=== PATIENT | male | born 1970 | race Caucasian/White ===

== ENCOUNTER 2017-04-27 16:19 | Inpatient (IN) | payer MEDICAID ==
[~2017-04-27] VITALS: Ht 182.9 cm; Wt 110.5 kg
[2017-04-27 17:03] LABS: Basophils # (auto) 0 uL; Basophils % (auto) 0.2 % (0.0-2.0); CONDITION Y; DEFINITIVE SEE PRINTOUT; Eosinophils # (auto) 0.1 uL; Eosinophils % (auto) 0.8 % (0.0-7.0); Hemoglobin 19.5 g/dL (13.5-17.5); Lymphocytes # (auto) 1.7 uL; Lymphocytes % (auto) 12.9 % (10.0-50.0); Mean Corpuscular Hemoglobin 29.5 pg (28.0-32.0); Mean Corpuscular Hgb Conc. 33.5 g/dL (32.0-36.0); Mean Corpuscular Volume 87.8 fL (80.0-100.0); Mean Platelet Volume 7.7 fL (6.9-10.8); Monocytes # (auto) 0.9 uL; Monocytes % (auto) 7.1 % (0.0-12.0); Neutrophils # (auto) 10.3 uL; Platelet Count (auto) 288 10^3/uL (140-450)
[2017-04-27 17:24] LABS: Albumin 3.7 g/dL (3.4-5.0); BUN/Creatinine Ratio 9.9; Calcium 9.1 mg/dL (8.5-10.1); Potassium 3.8 mmol/L (3.5-5.1)
[2017-04-27 17:27] LABS: Bilirubin, Total 0.6 mg/dL (0.2-1.0); Total Protein 7.7 g/dL (6.4-8.2)
[2017-04-27 17:33] LABS: Hematocrit 58.1 % (41.0-53.0)
[2017-04-27] MEDS ORDERED: hydrALAZINE HCL 20 MG/ML VL IV ONE (20:45)
[2017-04-27 21:04] LABS: Urine Bilirubin Negative (Negative); Urine Blood Negative /uL (Negative); Urine Color Yellow (Yellow); Urine Glucose Normal (Normal); Urine Hyaline Cast FEW /lpf (0 - 2); Urine Ketone Negative (Negative); Urine Mucus FEW (None Seen); Urine Nitrite Negative (Negative); Urine RBC 1 /hpf (0 - 3); Urine Squamous Epithelial Cell FEW /hpf (<5); Urine Urobilinogen Normal (Negative); Urine pH 5.5 (5.0-8.0)
[2017-04-27] MEDS ORDERED: cloNIDine HCL 0.1 MG TAB PO ONE (22:00)
[2017-04-27] MEDS ORDERED: SODIUM CHLORIDE 0.9% 1,000 ML IV ONE (22:15)
[2017-04-27] MEDS ORDERED: ONDANSETRON HCL 4 MG/2 ML VIAL IV ONE (22:15)
[2017-04-27] MEDS ORDERED: MORPHINE SULF INJ 2 MG/ML SYRINGE 1ML IV ONE (22:15)
[2017-04-28] VITALS (7 sets, daily range): BP systolic 119–156; BP diastolic 75–107
[2017-04-28] MEDS ORDERED: metroNIDAZOLE 500MG/100ML 100 ML IV ONE (01:00)
[2017-04-28] MEDS ORDERED: cefTRIAXone 1GM/50ML D5W 50 ML IV ONE (01:00)
[2017-04-28] MEDS ORDERED: SODIUM CHLORIDE 0.9% 1,000 ML IV SCH (01:52)
[2017-04-28] MEDS ORDERED: ONDANSETRON HCL 4 MG/2 ML VIAL IV PRN (02:00)
[2017-04-28] MEDS ORDERED: TEMAZEPAM 15 MG CAP PO PRN (02:00)
[2017-04-28] MEDS ORDERED: hydrALAZINE HCL 20 MG/ML VL ONE (02:22)
[2017-04-28] MEDS: MORPHINE SULF INJ 2 MG/ML SYRINGE 1ML IV PRN (04:13)
[2017-04-28] MEDS ORDERED: cloNIDine HCL 0.1 MG TAB PO SCH (10:00)
[2017-04-28] MEDS ORDERED: THIAMINE HCL 100 MG/ML 2ML VIAL IV ONE (12:30)
[2017-04-28] MEDS ORDERED: MULTIPLE VITAMINS W/ MINERALS TAB PO ONE (12:30)
[2017-04-28] MEDS ORDERED: PANTOPRAZOLE 40 MG TAB PO ONE (12:30)
[2017-04-28] MEDS ORDERED: GOLYTELY 4L KIT PO ONE (13:00)
[2017-04-28 14:32] LABS: INR 1.05 (0.9-1.15); Prothrombin Time 11.4 sec (9.37-12.3)
[2017-04-28] MEDS: hydrALAZINE HCL 20 MG/ML VL IV PRN (17:00)
[2017-04-29] MEDS: SODIUM CHLORIDE 0.9% 1,000 ML IV SCH ×3 (01:55→21:52)
[2017-04-29] MEDS: hydrALAZINE HCL 20 MG/ML VL IV PRN (03:29)
[2017-04-29 05:31] LABS: Basophils # (auto) 0 uL; Basophils % (auto) 0.3 % (0.0-2.0); Eosinophils # (auto) 0.3 uL; Hematocrit 49.3 % (41.0-53.0); Hemoglobin 16.8 g/dL (13.5-17.5); Lymphocytes % (auto) 22.9 % (10.0-50.0); Mean Corpuscular Hemoglobin 29.9 pg (28.0-32.0); Mean Corpuscular Hgb Conc. 34.1 g/dL (32.0-36.0); Mean Corpuscular Volume 87.6 fL (80.0-100.0); Mean Platelet Volume 7.3 fL (6.9-10.8); Monocytes # (auto) 0.6 uL; Monocytes % (auto) 7.5 % (0.0-12.0); Neutrophils # (auto) 5.8 uL; Neutrophils % (auto) 66.3 % (37.0-80.0); Nucleated Red Blood Cells % 0.1 %; Platelet Count (auto) 237 10^3/uL (140-450); Red Cell Distribution Width 14.5 % (11.8-14.3); White Blood Cell 8.7 10^3/uL (4.4-10.8)
[2017-04-29 05:32] VITALS: BP 164/92
[2017-04-29 05:42] LABS: Partial Thromboplastin Time 28.8 sec (22.64-33.71); Prothrombin Time 10.9 sec (9.37-12.3)
[2017-04-29 05:48] LABS: Albumin 2.9 g/dL (3.4-5.0); BUN/Creatinine Ratio 11.7; Potassium 3.7 mmol/L (3.5-5.1)
[2017-04-29 05:51] LABS: Bilirubin, Total 0.6 mg/dL (0.2-1.0); Total Protein 6.7 g/dL (6.4-8.2)
[2017-04-29] MEDS: MORPHINE SULF INJ 2 MG/ML SYRINGE 1ML IV PRN (08:46)
[2017-04-29 08:48] VITALS: BP 164/133
[2017-04-29] MEDS ORDERED: LORazepam 2MG/ML-1ML VIAL IV PRN (09:30)
[2017-04-29] MEDS ORDERED: fentaNYL CITRATE 100 MCG/2 ML VL ONE (09:35)
[2017-04-29] MEDS ORDERED: FLUMAZENIL 0.1 MG/ML INJ 10ML MDV IV ONE (09:35)
[2017-04-29] MEDS ORDERED: SODIUM CHLORIDE LOCK 10 ML ONE (09:35)
[2017-04-29] MEDS ORDERED: NALOXONE HCL 0.4 MG/ML VIAL ONE (09:35)
[2017-04-29] MEDS ORDERED: MIDAZOLAM HCL 5 MG/ML-1ML VIAL ONE (09:36)
[2017-04-29] MEDS ORDERED: diphenhdrAMINE HCL 50 MG/1 ML VL ONE (09:36)
[2017-04-29] MEDS: LABETALOL HCL 5 MG/ML 4ML SYRINGE IV PRN ×2 (10:00→12:30)
[2017-04-29] MEDS ORDERED: LISINOPRIL 10 MG TAB PO SCH (10:00)
[2017-04-29] MEDS ORDERED: predniSONE 20 MG TAB PO ONE (12:15)
[2017-04-29 12:34] VITALS: BP 153/110
[2017-04-29] MEDS ORDERED: cloNIDine HCL 0.1 MG TAB PO ONE (13:30)
[2017-04-29] MEDS ORDERED: LISINOPRIL 10 MG TAB PO ONE (13:30)
[2017-04-29] MEDS: PANTOPRAZOLE 40 MG TAB PO SCH (13:50)
[2017-04-29] MEDS: MULTIPLE VITAMINS W/ MINERALS TAB PO SCH (13:50)
[2017-04-29] MEDS: MESALAMINE 400mg Delayed Release Cap PO SCH ×2 (13:51→21:44)
[2017-04-29] MEDS: THIAMINE HCL 100 MG/ML 2ML VIAL IV SCH (14:47)
[2017-04-29 16:41] VITALS: BP 133/86
[2017-04-29] MEDS: cloNIDine HCL 0.1 MG TAB PO SCH (21:43)
[2017-04-29] MEDS: HYDROcodone-ACET 5/325MG TAB PO PRN (21:44)
[2017-04-29 22:00] VITALS: BP 151/82
[2017-04-30] MEDS: HYDROcodone-ACET 5/325MG TAB PO PRN (04:50)
[2017-04-30] MEDS: MESALAMINE 400mg Delayed Release Cap PO SCH ×3 (04:50→22:51)
[2017-04-30] MEDS: cloNIDine HCL 0.1 MG TAB PO SCH ×2 (04:51→09:25)
[2017-04-30 05:00] VITALS: BP 137/85
[2017-04-30 06:01] LABS: Basophils # (auto) 0 uL; Basophils % (auto) 0.2 % (0.0-2.0); Eosinophils # (auto) 0.1 uL; Hemoglobin 14.8 g/dL (13.5-17.5); Lymphocytes # (auto) 1.5 uL; Mean Corpuscular Hemoglobin 30.4 pg (28.0-32.0); Mean Corpuscular Hgb Conc. 34.3 g/dL (32.0-36.0); Mean Corpuscular Volume 88.6 fL (80.0-100.0); Mean Platelet Volume 7.5 fL (6.9-10.8); Monocytes # (auto) 0.6 uL; Monocytes % (auto) 6.5 % (0.0-12.0); Neutrophils # (auto) 7.2 uL; Neutrophils % (auto) 76.3 % (37.0-80.0); Platelet Count (auto) 248 10^3/uL (140-450); Red Cell Distribution Width 14.4 % (11.8-14.3); White Blood Cell 9.4 10^3/uL (4.4-10.8)
[2017-04-30 06:15] LABS: BUN/Creatinine Ratio 16.2; Calcium 8.1 mg/dL (8.5-10.1); Potassium 4.2 mmol/L (3.5-5.1)
[2017-04-30] MEDS: SODIUM CHLORIDE 0.9% 1,000 ML IV SCH (06:39)
[2017-04-30 07:14] VITALS: BP 139/97
[2017-04-30] MEDS: PANTOPRAZOLE 40 MG TAB PO SCH (09:24)
[2017-04-30] MEDS: MULTIPLE VITAMINS W/ MINERALS TAB PO SCH (09:24)
[2017-04-30] MEDS: predniSONE 20 MG TAB PO SCH (09:25)
[2017-04-30] MEDS: LISINOPRIL 20 MG TAB PO SCH (09:26)
[2017-04-30] MEDS: THIAMINE HCL 100 MG/ML 2ML VIAL IV SCH (09:26)
[2017-04-30 11:23] VITALS: BP 140/91
[2017-04-30 16:11] VITALS: BP 154/94
[2017-04-30 22:32] VITALS: BP 160/87
[2017-04-30] MEDS: MORPHINE SULF INJ 2 MG/ML SYRINGE 1ML IV PRN (22:52)
[2017-05-01 05:25] VITALS: BP 151/83
[2017-05-01] MEDS: MESALAMINE 400mg Delayed Release Cap PO SCH ×3 (05:43→21:51)
[2017-05-01 06:08] LABS: Basophils # (auto) 0.1 uL; Basophils % (auto) 0.6 % (0.0-2.0); Eosinophils # (auto) 0.2 uL; Eosinophils % (auto) 1.9 % (0.0-7.0); Hematocrit 43.7 % (41.0-53.0); Hemoglobin 14.9 g/dL (13.5-17.5); Lymphocytes # (auto) 2.5 uL; Lymphocytes % (auto) 24.3 % (10.0-50.0); Mean Corpuscular Hemoglobin 29.9 pg (28.0-32.0); Mean Corpuscular Hgb Conc. 34.1 g/dL (32.0-36.0); Mean Corpuscular Volume 87.9 fL (80.0-100.0); Mean Platelet Volume 7.7 fL (6.9-10.8); Monocytes # (auto) 0.7 uL; Monocytes % (auto) 6.8 % (0.0-12.0); Neutrophils # (auto) 6.9 uL; Neutrophils % (auto) 66.4 % (37.0-80.0); Nucleated Red Blood Cells % 0.1 %; Platelet Count (auto) 259 10^3/uL (140-450); Red Cell Distribution Width 14.5 % (11.8-14.3); White Blood Cell 10.4 10^3/uL (4.4-10.8)
[2017-05-01 06:28] LABS: Albumin 2.8 g/dL (3.4-5.0); BUN/Creatinine Ratio 19.2; Calcium 8.4 mg/dL (8.5-10.1); Potassium 4.2 mmol/L (3.5-5.1)
[2017-05-01 06:31] LABS: Bilirubin, Total 0.3 mg/dL (0.2-1.0); Total Protein 6.3 g/dL (6.4-8.2)
[2017-05-01] MEDS: PANTOPRAZOLE 40 MG TAB PO SCH (08:15)
[2017-05-01] MEDS: predniSONE 20 MG TAB PO SCH (08:15)
[2017-05-01] MEDS: cloNIDine HCL 0.1 MG TAB PO SCH (08:15)
[2017-05-01] MEDS: LISINOPRIL 20 MG TAB PO SCH (08:16)
[2017-05-01] MEDS: MULTIPLE VITAMINS W/ MINERALS TAB PO SCH (08:16)
[2017-05-01] MEDS: THIAMINE HCL 100 MG/ML 2ML VIAL IV SCH (08:16)
[2017-05-01 08:17] VITALS: BP 163/119
[2017-05-01 12:27] VITALS: BP 160/102
[2017-05-01 12:32] VITALS: BP 157/94
[2017-05-01] MEDS ORDERED: cloNIDine HCL 0.1 MG TAB PO PRN (13:30)
[2017-05-01 16:18] VITALS: BP 159/100
[2017-05-01] MEDS: ATENOLOL 25 MG TAB PO SCH (16:56)
[2017-05-01] MEDS: MORPHINE SULF INJ 2 MG/ML SYRINGE 1ML IV PRN (21:51)
[2017-05-01 22:00] VITALS: BP 154/100
[2017-05-02 05:00] VITALS: BP 167/127
[2017-05-02] MEDS: MESALAMINE 400mg Delayed Release Cap PO SCH (05:59)
[2017-05-02 08:00] VITALS: BP 159/100
[2017-05-02 09:08] VITALS: BP 157/102
[2017-05-02] MEDS: predniSONE 20 MG TAB PO SCH (09:34)
[2017-05-02] MEDS: PANTOPRAZOLE 40 MG TAB PO SCH (09:34)
[2017-05-02] MEDS: MULTIPLE VITAMINS W/ MINERALS TAB PO SCH (09:34)
[2017-05-02] MEDS: ATENOLOL 25 MG TAB PO SCH (09:34)
[2017-05-02] MEDS: THIAMINE HCL 100 MG/ML 2ML VIAL IV SCH (09:36)
[2017-05-02] MEDS: LISINOPRIL 20 MG TAB PO SCH (09:36)
[2017-05-02] MEDS ORDERED: LISINOPRIL 20 MG TAB PO SCH (10:00)
[2017-05-02] MEDS ORDERED: ATENOLOL 25 MG TAB PO SCH (10:00)
== END 2017-05-02 10:13 | disposition left against medical advice (07) | DRG 249 ==
LOC: ER 16:19 → OVERFLOW 16:20 → WEST WING 04-28 03:30
PROVIDERS: ADMIT Emergency Medicine; ATTEND Internal Medicine Pulmonary Disease
PROC: 0DBF8ZX Excision of Right Large Intestine, Via Natural or Artificial Opening Endoscopic, Diagnostic (ICD-10-PCS; principal; 2017-04-29 11:43)
DX: A09 Infectious gastroenteritis and colitis, unspecified (principal); E44.0 Moderate protein-calorie malnutrition; K76.0 Fatty (change of) liver, not elsewhere classified; I10 Essential (primary) hypertension; K64.8 Other hemorrhoids; E86.0 Dehydration; I16.0 Hypertensive urgency; F17.210 Nicotine dependence, cigarettes, uncomplicated; F12.90 Cannabis use, unspecified, uncomplicated; F15.90 Other stimulant use, unspecified, uncomplicated; M46.90 Unspecified inflammatory spondylopathy, site unspecified; Z91.19 Patient's noncompliance with other medical treatment and regimen; Z68.33 Body mass index [BMI] 33.0-33.9, adult
CPT/HCPCS: 36415; 45380; 74176; 80048; 80053; 80307; 81001; 82150; 82270; 85025; 85048; 85610; 85730; 87493; 96361; 96374; 96375; J0696; J2250; J2405; J3490

== ENCOUNTER 2023-05-30 02:48 | Emergency (ER) | payer SELFPAY ==
[~2023-05-30] VITALS: Ht 180.3 cm; Wt 104.0 kg
[2023-05-30 03:26] VITALS: PULSE 81; RESP 18; O2SAT 94
[2023-05-30 03:27] LABS: Basophils # (auto) 0 10 ^3/uL (0-0.2); Basophils % (auto) 0.4 % (0.0-2.0); Eosinophils # (auto) 0.3 10 ^3/uL (0-0.8); Eosinophils % (auto) 3.5 % (0.0-7.0); Hematocrit 47.3 % (41.0-53.0); Hemoglobin 15.8 g/dL (13.5-17.5); Lymphocytes # (auto) 2.1 10 ^3/uL (0.4-5.4); Lymphocytes % (auto) 25.9 % (10.0-50.0); Mean Corpuscular Hgb Conc. 33.5 g/dL (32.0-36.0); Mean Corpuscular Volume 86.7 fL (80.0-100.0); Monocytes # (auto) 0.7 10 ^3/uL (0-1.3); Monocytes % (auto) 8.9 % (0.0-12.0); Neutrophils % (auto) 61.3 % (37.0-80.0); Nucleated Red Blood Cells % 0.1 %; Red Blood Cells 5.45 10^6/uL (4.5-5.90); Red Cell Distribution Width 13.8 % (11.8-14.3); White Blood Cell 8.2 10^3/uL (4.4-10.8)
[2023-05-30] MEDS ORDERED: IOHEXOL 300 MG/ML 100ML BOTTLE IJ ONE (03:33)
[2023-05-30 03:46] LABS: Albumin 4.4 g/dL (3.2-4.8); Alkaline Phosphatase 124 U/L (46-116); Anion Gap 6 (5-15); Aspartate Aminotransferase 39 U/L (13-40); BUN/Creatinine Ratio 7.1 (10.0-20.0); Blood Urea Nitrogen 8 mg/dL (9-23); Carbon Dioxide 27 mmol/L (20-30); Chloride 105 mmol/L (98-107); Glucose 104 mg/dL (74-106); Potassium 3.8 mmol/L (3.5-5.1); Sodium 138 mmol/L (136-145)
[2023-05-30 03:47] LABS: Alanine Aminotransferase 54 U/L (7-40); Bilirubin, Total 0.5 mg/dL (0.2-1.0); Calcium 8.9 mg/dL (8.7-10.4); Total Protein 7.5 g/dL (5.7-8.2)
[2023-05-30 04:27] LABS: INR 0.99 (0.9-1.15); Partial Thromboplastin Time 28.8 SEC (24.5-34.5); Prothrombin Time 10.4 sec (9.3-11.8)
[2023-05-30] MEDS ORDERED: hydrALAZINE HCL 20 MG/ML VL IV ONE ×2 (04:45→06:00)
[2023-05-30 06:35] VITALS: BP 152/104; PULSE 88; RESP 18; O2SAT 98
[2023-05-30 07:05] LABS: Urine WBC None Seen /hpf (0 - 3)
[2023-05-30 07:20] LABS: Amphetamine Screen, Urine Pos (NEGATIVE); Barbiturate Scree,Urine Neg (NEGATIVE); Benzodiazephine Screen, Urine Neg (NEGATIVE); Cannabinoid Screen, Urine Pos (NEGATIVE); Cocaine Screen, Urine Neg (NEGATIVE); Opiate Scree,Urine Neg (NEGATIVE); Phencyclidine Screen, Urine Neg (NEGATIVE)
[2023-05-30 07:24] LABS: Urine Bacteria NONE SEEN /hpf (None Seen); Urine Blood Negative /uL (Negative); Urine Clarity Clear (Clear); Urine Color Colorless (Yellow); Urine Protein, UAD Negative (Negative); Urine Specific Gravity 1.038 (1.001-1.035); Urine Urobilinogen Normal (Negative)
== END 2023-05-30 08:28 ==
LOC: ER 02:52 → EEVIPCON 02:52 → ER 08:25
DX: I10 Essential (primary) hypertension; F17.210 Nicotine dependence, cigarettes, uncomplicated; F12.90 Cannabis use, unspecified, uncomplicated; F15.90 Other stimulant use, unspecified, uncomplicated; F10.90 Alcohol use, unspecified, uncomplicated
CPT/HCPCS: 36415; 70450; 71260; 72125; 74177; 80053; 80307; 80320; 81001; 82962; 83735; 84484; 85025; 85610; 85730; 93005; 96374; 96376; 99285; J0360; Q9967

== ENCOUNTER 2024-03-11 18:30 | Emergency (ER) | payer MEDICAID ==
[~2024-03-11] VITALS: Ht 182.9 cm; Wt 106.2 kg
[2024-03-11] MEDS: HYDROcodone-ACET 10/325MG TAB PO ONE (21:42)
[2024-03-11] MEDS: KETOROLAC TROMETH 60MG/2ML VIAL IM ONE (21:42)
[2024-03-11 21:47] VITALS: BP 150/102; PULSE 93; RESP 18; TEMP 98.5; O2SAT 96
[2024-03-11] MEDS ORDERED: MELO15TA29 PO (23:11)
== END 2024-03-11 23:33 | disposition left against medical advice (07) ==
LOC: ER 18:30
DX: M17.0 Bilateral primary osteoarthritis of knee (principal); I10 Essential (primary) hypertension; F17.210 Nicotine dependence, cigarettes, uncomplicated; F10.90 Alcohol use, unspecified, uncomplicated; F15.90 Other stimulant use, unspecified, uncomplicated; Y90.0 Blood alcohol level of less than 20 mg/100 ml
CPT/HCPCS: 73562; 96372; 99283; J1885